=== PATIENT | female | born 1950 | race Caucasian/White ===

== ENCOUNTER → 2018-10-17 | Outpatient (CLI) | payer MEDICARE ==
[~2018-10-17] MED LIST: ALB0.5 INH; CHOL200018 PO; LISI-347 PO; METH-543 PO; MON10 PO; PIOG30TA34 PO; REGADENOSON 0.4 MG/5 ML SYR ONE; SITA1TAB13 PO
--- NOTE | 2018-10-17 15:49 | RADIOLOGY IMAGING REPORT ---
FACILITY: [facility] - [place] PATIENT NAME: Teresa Pemberton : 1950 MR: [id number] V: [id number] EXAM DATE: ORDERING PHYSICIAN: ALETHEA SAHU TECHNOLOGIST: Location: [facility] [place] Patient: Teresa Pemberton : 1950 Visit/Account:[id number] Date of Sevice: 10/17/2018 EXAMINATION: Single isotope SPECT imaging with regadenoson infusion and gated SPECT imaging. DATE OF EXAMINATION: 10/17/2018. DATE OF INTERPRETATION: 10/17/2018. REQUESTING PHYSICIAN: ALETHEA SAHU. INDICATION: The patient is a 67-year-old female evaluated for exercise intolerance. PROCEDURE: After informed consent the patient received an intravenous injection of 11.1 mCi of Tc-99 m sestamibi followed at an appropriate time interval by rest imaging. The patient then subsequently received an intravenous infusion of 0.4 mg of regadenoson per protocol without complication. Resting heart rate was 74 bpm with a peak heart rate of 96 bpm. Blood pressure at rest was 122 / 68 and fol lowing infusion was 136 / 62. Baseline EKG demonstrates sinus rhythm, right bundle branch block, inf erior and lateral Q waves.. There were no new EKG changes of ischemia following infusion. Symptoms were nonspecific. The patient then received an intravenous injection of 29.9 mCi of Tc-99m sestamibi followed by stress imaging. RAW DATA: Examination of the summed raw data revealed a good quality study. MYOCARDIAL PERFUSION: The tomographic images demonstrate no evidence of significant ischemia or prio r infarct. GATED IMAGES: The gated images demonstrate normal wall motion, ejection fraction 73%. IMPRESSION: 1. Good quality study 2. Normal myocardial perfusion scan. 3. Normal LV systolic function; LVEF 73%. 4. Based on the results of this exam, the patient appears to be at low risk for future cardiovascular events but remains intermediate risk due to inability to exercise. Report Dictated By: Martínez Guadarrama at 10/17/2018 3:40 PM Report E-Signed By: Martínez Guadarrama at 10/17/2018 3:45 PM WSN:[id number]
== END ==
LOC: NUC 01:06
PROVIDERS: ATTEND Nurse Practitioner Family
DX: R10.11 Right upper quadrant pain (principal); Z73.89 Other problems related to life management difficulty; R53.81 Other malaise; I10 Essential (primary) hypertension; E78.2 Mixed hyperlipidemia; R06.00 Dyspnea, unspecified; E11.65 Type 2 diabetes mellitus with hyperglycemia; E55.9 Vitamin D deficiency, unspecified
CPT/HCPCS: 78452; 93017; A9500; J2785

== ENCOUNTER → 2018-10-18 | Outpatient (CLI) | payer MEDICARE ==
[~2018-10-18] MED LIST changes: -REGADENOSON 0.4 MG/5 ML SYR ONE
--- NOTE | 2018-10-18 12:07 | RADIOLOGY IMAGING REPORT ---
FACILITY: [facility] - [place] PATIENT NAME: Teresa Pemberton : 1950 MR: [id number] V: [id number] EXAM DATE: ORDERING PHYSICIAN: ALETHEA SAHU TECHNOLOGIST: Location: [facility] - [place] Patient: Teresa Pemberton : 1950 Visit/Account:[id number] Date of Sevice: 10/18/2018 GALLBLADDER HISTORY: Right upper quadrant pain COMPARISON: None. FINDINGS: Gallbladder: There is a 3.2 cm stone in the gallbladder neck. Gallbladder wall does not appear thick ened. Is a negative Schwarz sign by technologist notation Liver: Mild increased echogenicity throughout the liver can be seen with fatty infiltration other inf iltrative process Common duct: Normal, 1.3 mm diameter. Pancreas: Partially obscured by bowel, visualized aspects unremarkable. Right kidney: Right kidney has a lobular contour with increased echogenicity of the renal parenchyma. There is however no demonstration of hydronephrosis. The right kidney measures 11.25 cm in length Upper abdominal aorta and IVC: Patent. Ascites: None visualized. IMPRESSION: Increased echogenicity throughout liver which can be seen with fatty infiltration other infiltrative process 3.2 cm stone within the gallbladder neck Lobular contour to the right kidney with increased echogenicity of the renal parenchyma which can be seen with medical renal disease Report Dictated By: Jessika Pedro MD at 10/18/2018 12:00 PM Report E-Signed By: Jessika Pedro MD at 10/18/2018 12:03 PM WSN:[email or web address]
== END ==
LOC: US 10-16 06:43
PROVIDERS: ATTEND Nurse Practitioner Family
DX: K80.20 Calculus of gallbladder without cholecystitis without obstruction (principal)
CPT/HCPCS: 76705

== ENCOUNTER → 2018-10-21 | Outpatient (CLI) | payer MEDICARE ==
--- NOTE | 2018-10-21 12:43 | RADIOLOGY IMAGING REPORT ---
FACILITY: [facility] - [place] PATIENT NAME: Teresa Pemberton : 1950 MR: [id number] V: [id number] EXAM DATE: ORDERING PHYSICIAN: DELICIA RIVERA TECHNOLOGIST: Location: [facility] [place] Patient: Teresa Pemberton : 1950 Visit/Account:[id number] Date of Sevice: 10/21/2018 Exam type: VENOUS DOPP LOW RIGHT EXTREMIT History: Right leg pain since last night Comparison: None. Findings: Right lower extremity veins were imaged including the right common femoral vein greater saphenous vei n, superficial femoral vein, popliteal vein, posterior tibial vein, peroneal vein, anterior tibial ve in revealing no evidence of intraluminal thrombi. The veins were compressible and demonstrated augme ntation IMPRESSION: 1. No sonographic evidence DVT involving the right lower extremity veins Report Dictated By: Jessika Pedro MD at 10/21/2018 12:36 PM Report E-Signed By: Jessika Pedro MD at 10/21/2018 12:37 PM WSN:[id number]
== END ==
LOC: US 10:50
PROVIDERS: ATTEND Family Medicine
DX: M79.609 Pain in unspecified limb (principal)

== ENCOUNTER → 2018-10-24 | Outpatient (CLI) | payer MEDICARE ==
[~2018-10-24] MED LIST changes: +ASPI-1471 PO
[2018-10-24 16:47] LABS: PLATELET COUNT, AUTOMATED 293 K/uL (150-450)
== END ==
LOC: LAB 16:22
PROVIDERS: ATTEND Surgery
DX: K80.20 Calculus of gallbladder without cholecystitis without obstruction (principal)
CPT/HCPCS: 36415; 82040; 82247; 82310; 82374; 82435; 82565; 82947; 83036; 84075; 84132; 84155; 84295; 84450; 84460; 84520; 85025

== ENCOUNTER 2018-11-19 00:52 | Day surgery (SDC) | payer MEDICARE ==
[2018-11-19] VITALS (8 sets, daily range): BP systolic 82–142; BP diastolic 50–79
[~2018-11-19] VITALS: Ht 180.3 cm; Wt 156.0 kg
[~2018-11-19 00:52] MED LIST changes: +PRAV20TA65 PO
[2018-11-19] MEDS ORDERED: PROPOFOL EMUL(*) 10MG/ML 20 ML 20 ML ONE (09:17)
[2018-11-19] MEDS ORDERED: LIDOCAINE 2% IV 100 MG/5ML SYR ONE (09:18)
[2018-11-19] MEDS ORDERED: fentaNYL CITR 250 MCG/5 ML AMP ONE (09:19)
[2018-11-19] MEDS ORDERED: FAMOTIDINE 20 MG TAB PO ONE (09:50)
[2018-11-19] MEDS ORDERED: NORMOSOL R SOLN(*) 1000 ML BAG 1,000 ML IV PRN (09:50)
[2018-11-19] MEDS ORDERED: LIDOCAINE/SOD BICARB 8.4% SYR ID ONE (09:50)
[2018-11-19] MEDS ORDERED: MIDAZOLAM 2 MG/2 ML VIAL IVP PRN (09:50)
[2018-11-19] MEDS ORDERED: BUPIVACAINE/EPI 0.5% 50ML VIAL INFIL ONE (10:18)
[2018-11-19] MEDS ORDERED: KETOROLAC 30 MG/ML VIAL ONE (10:26)
[2018-11-19] MEDS ORDERED: ONDANSETRON 4 MG/2 ML VIAL ONE (10:26)
[2018-11-19] MEDS ORDERED: KETAMINE HCL 200 MG/20 ML MDV ONE (10:32)
[2018-11-19] MEDS ORDERED: ceFAZolin(*) 1 GM VIAL 3 GM in NS(*) 0.9% 100 ML BAG 100 ML IVPB ONE (10:35)
[2018-11-19] MEDS ORDERED: SUGAMMADEX SOD 200 MG/2 ML SDV ONE (11:14)
[2018-11-19] MEDS ORDERED: fentaNYL CITR 100 MCG/2 ML AMP ONE (11:42)
[2018-11-19] MEDS ORDERED: TRAM-420 PO (12:26)
--- NOTE | 2018-11-19 12:30 | Short(Outpt) Discharge Summary ---
Discharge Summary Reason for Hosp/Final Diag: (1) Symptomatic cholelithiasis Hospital Course & Plan: 68 yo f presented for lap kenneth. she tolerated the procedure well and there were no complications. pt will be discharged home when criteria met. Departure Discharge to: Home Discharge Instructions Home Meds Active Scripts Tramadol Hcl (TRAMADOL HCL) 50 Mg Tablet, 50 MG PO Q4H PRN for PAIN, #20 TAB Prov:LITA LENNON 11/19/18 Reported Medications Pravastatin Sodium (PRAVACHOL) 20 Mg Tablet, 10 MG PO QDAY, TAB 11/07/18 Aspirin (ASPIR 81) 81 Mg Tablet.dr, 81 MG PO QDAY, TAB 10/24/18 Cholecalciferol (Vitamin D3) (VITAMIN D) 2,000 Unit Tablet, 5000 UNIT PO QDAY 10/05/14 Pioglitazone Hcl (ACTOS) 30 Mg Tablet, 30 MG PO QDAY 10/05/14 Albuterol Sulfate (Albuterol Inh Conc) 2.5 Mg/0.5 Ml Nebu, 2.5 MG INH PRN, 0 Refills DILUTE BEFORE USING 08/20/09 Montelukast Sodium (Singulair) 10 Mg Tab, 10 MG PO QDAY, 0 Refills 08/20/09 Lisinopril/Hydrochlorothiazide (Lisinopril-Hctz 20/12.5 Tab) 1 Each Tablet, 1 EACH PO DAILY, 0 Refills 08/20/09 Sitagliptin Phos/Metformin Hcl (Janumet 50-500 Mg Tablet) 1 Udtab Tablet, 2 UDTAB PO BID, 0 Refills 08/20/09 Diet: Regular Activity: No Heavy Lifting Special Instructions: no lifting more than 15 lbs for 4 wks ok to shower tomorrow no fatty greasy food for 3 wks take stool softener while taking pain meds please call to make 2 week follow up appt ([phone]) LITA LENNON Nov 19, 2018 12:30
--- NOTE | 2018-11-19 12:35 | Post Operative Progress Note ---
Post Operative Progress Note Date: Nov 19, 2018 Time: 12:30 Surgeon: dr. sandra palacios #[id number] Laborer [place]: none Anesthesia: gen, local dr. medrano Pre-Op Diagnosis: symptomatic cholethiasis Post-Op Diagnosis: same Findings: cholelithiasis, cirrhosis Procedure(s): lap kenneth Specimen Removed:(May be N/A): gallbladder Complications: none Fluids: iv crystalloid Estimated Blood Loss: minimal Date OP Note Dictated: Nov 19, 2018 Time OP Note Dictated: 12:32 LITA PALACIOS Nov 19, 2018 12:35
--- NOTE | 2018-11-19 12:55 | OPERATIVE REPORT 1 ---
EVENT DATE: November 19, 2018 SURGEON: Jason Reardon MD ANESTHESIOLOGIST: Schuyler Vizcarra MD ANESTHESIA: General, local. WEAVER NEEDLE LOOM: None. PREOPERATIVE DIAGNOSIS Symptomatic cholelithiasis. POSTOPERATIVE DIAGNOSIS Symptomatic cholelithiasis. PROCEDURE PERFORMED Laparoscopic cholecystectomy. FLUIDS IV Crystalloids. ESTIMATED BLOOD LOSS Minimal. SPECIMENS Gallbladder. COMPLICATIONS None. INDICATIONS This is a 68-year-old female with an episode of right upper quadrant pain in the recent past. Imaging revealed a large stone in the gallbladder. Risk and benefits of the procedure explained and consent was signed. DESCRIPTION OF PROCEDURE The patient was taken to the operating room and placed in the supine position. General anesthesia was administered per the anesthesia team. The patient was prepped and draped in the normal sterile fashion. Local analgesia injected in the dermis below the right costal margin and a small incision was made. Optiview technique was used to easily enter the abdomen. Pneumoperitoneum was achieved. After injecting local analgesia, under direct vision a 5 mm periumbilical port was placed as well as a 12 mm subxiphoid port and another 5 mm right sided port. I inspected the abdomen, there was no injury upon entry. The liver liver did have a cirrhotic appearance to it. The fundus of the gallbladder was grasped, retracted superiorly and laterally. The large stone was making the dissection difficult and therefore I incised the gallbladder, suctioned the bile and removed the stone. I then used electrocautery and LigaSure to free the cystic duct and cystic artery of surrounding tissue. Both structures were seen going directly to the gallbladder. Three clips were placed on the cystic duct and it was divided sharply between the distal two clips. The artery was divided with LigaSure. Electrocautery and LigaSure were then used to free dissect the gallbladder off of the liver. The gallbladder and stone were removed with EndoCatch bags through the subxiphoid port site. The right upper quadrant was irrigated and suctioned. Irrigant returned clear. Hemostasis was assured. The fascia closure device with an 0 Vicryl stitch was used to close the fascia of the subxiphoid port site. Two right upper quadrant ports were removed under direct vision and hemostasis was assured. Final port was removed after pneumoperitoneum was relieved. All skin incisions were closed with 4-0 Monocryl subcuticular stitches. More local analgesia was injected, appropriate dressings were applied. The patient tolerated the procedure well and there were no complications. MTDD
--- NOTE | 2018-11-19 13:27 | NUR ---
1302 SBAR REPORT WAS RECEIVED FROM Osmar HOWELL AND KOLBY WHELAN. PATIENT IS BREATHING AT A MODERATE RATE AND DEPTH. SHE IS ON 2 LITERS NASAL CANNULA. LUNGS ARE DIMINISHED THROUGHOUT. BOWEL SOUNDS ARE ACTIVE. SHE STATES HER PAIN IS 4/10. SHE HAS 4 INCISION SITES THAT ARE COVERED WITH DERMABOND THAT ARE ALL DRY AND INTACT. 18 GAUGE IV THAT IS INFUSING. SHE STATES SHE HAS A SORE THROAT AND STIFF NECK/BACK. WILL TRY ICE CHIPS TO HELP RELIEVE THROAT. ICE PACK TO HER ABDOMEN. SEE ADMISSION ASSESSMENT. 1312 PATIENT WAS GIVEN ICE CHIPS. SHE WANTED TO REST SO LIGHTS TURNED OFF TO LET PATIENT SLEEP.
[2018-11-19] MEDS ORDERED: traMADol 50 MG TAB ONE (14:27)
== END 2018-11-19 13:08 | disposition home or self-care (01) ==
LOC: OR 00:52
PROVIDERS: ATTEND Surgery
DX: K80.10 Calculus of gallbladder with chronic cholecystitis without obstruction (principal); E11.9 Type 2 diabetes mellitus without complications; E66.01 Morbid (severe) obesity due to excess calories; Z68.42 Body mass index [BMI] 45.0-49.9, adult; I10 Essential (primary) hypertension; E78.5 Hyperlipidemia, unspecified; J45.909 Unspecified asthma, uncomplicated
CPT/HCPCS: 36416; 47562; 82948; 88304; A9270; J0690; J1885; J2001; J2405; J2704; J3010; J3490; J7050